=== PATIENT | female | born 1965 | race Caucasian/White ===

== ENCOUNTER 2019-05-16 10:58 | Emergency (ER) | payer SELFPAY ==
[~2019-05-16] VITALS: Ht 165.1 cm; Wt 93.4 kg
--- OUTSIDE RECORDS SUMMARY | 2019-05-16 11:01 | XMS REPORT ---
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 Allergies, Adverse Reactions, Alerts This patient has no known allergies or adverse reactions. Medications This patient has no known medications. Encounters Start Date/Time End Date/Time Encounter Type Admission Type Attending [facility] Care Department Encounter ID [id number] 02:50:23 2019 02:50:23 Emergency [facility] [id number] 2019-01-25 11:41:57 2019-01-25 11:41:57 Outpatient [facility] [id number] 2018-06-02 00:00:00 2018-06-02 00:00:00 Outpatient [facility] [id number] 2017-07-28 00:00:00 2017-07-28 00:00:00 Outpatient [facility] [id number] 2017-07-20 00:00:00 2017-07-20 00:00:00 Outpatient [facility] [id number] 2017-07-06 10:56:00 2017-07-06 10:56:00 Outpatient [facility] [id number] 2017-07-06 00:00:00 2017-07-06 00:00:00 Outpatient [facility] [id number] 2017-06-08 11:52:46 2017-06-08 11:52:46 Outpatient [facility] [id number] 2017-06-01 15:19:26 2017-06-01 15:19:26 Outpatient [facility] [id number] 2017-06-01 12:48:47 2017-06-01 12:48:47 Outpatient [facility] [id number] 2017-05-12 08:37:39 2017-05-12 08:37:39 Outpatient [facility] [id number] 2017-05-06 05:30:00 2017-05-06 05:30:00 Outpatient [facility] [id number] 2017-05-06 00:00:00 2017-05-06 00:00:00 Outpatient [facility] [id number] 2017-04-22 11:43:29 2017-04-22 11:43:29 Outpatient [facility] [id number] 2017-04-22 00:00:00 2017-04-22 00:00:00 Outpatient [facility] [id number] 2017-04-13 08:16:10 2017-04-13 08:16:10 Outpatient [facility] [id number] 2017-04-08 13:38:51 2017-04-08 13:38:51 Outpatient [facility] [id number] 2017-04-06 00:00:00 2017-04-06 00:00:00 Outpatient [facility] [id number] 2017-03-30 13:36:37 2017-03-30 13:36:37 Outpatient [facility] [id number] 2017-03-26 18:18:20 2017-03-26 18:18:20 Emergency [facility] [id number] 2017-03-26 15:04:15 2017-03-26 15:04:15 Emergency [facility] [id number]
[2019-05-16 11:38] LABS: BASOPHILS # (AUTO) 0.1 (0.0-0.1); BASOPHILS % 0.5 % (0.0-1.0); EOSINOPHILS # (AUTO) 0.2 (0.0-0.4); EOSINOPHILS % 1.5 % (0.0-6.0); HEMATOCRIT 42.3 % (34.2-44.1); HEMOGLOBIN 13.7 g/dL (12.0-16.0); LYMPHOCYTES # (AUTO) 2.9 (1.0-3.2); LYMPHOCYTES % 28.2 % (18.0-39.1); MEAN CORPUSCULAR HGB CONC 32.4 g/dL (31-35); MEAN CORPUSCULAR VOLUME 92.6 fL (81-99); MONOCYTES # (AUTO) 0.7 (0.2-0.8); MONOCYTES % 7.2 % (4.4-11.3); NEUTROPHILS # (AUTO) 6.4 (2.1-6.9); NEUTROPHILS % 62.2 % (38.7-80.0); PLATELET COUNT 320 x10e3/uL (140-360); RED BLOOD COUNT 4.57 x10e6/uL (3.6-5.1); RED CELL DISTRIBUTION WIDTH 13.1 % (11.7-14.4)
[2019-05-16 11:39] LABS: BILIRUBIN,URINE NEGATIVE (NEGATIVE); CLARITY,URINE CLEAR (CLEAR); COLOR,URINE YELLOW (YELLOW); KETONES,URINE NEGATIVE (NEGATIVE); LEUKOCYTE ESTERASE ,URINE SMALL (NEGATIVE); NITRITE,URINE NEGATIVE (NEGATIVE); PROTEIN,URINE DIPSTICK NEGATIVE (NEGATIVE); URINE UROBILINOGEN 0.2 mg/dL (0.2 - 1)
[2019-05-16] MEDS ORDERED: SODIUM CHLORIDE 0.9% 1000ML 1,000 ML IV SCH (11:45)
[2019-05-16 11:58] LABS: ALANINE AMINOTRANSFERASE 23 IU/L (0-55); ALBUMIN 3.9 g/dL (3.5-5.0); ALBUMIN/GLOBULIN RATIO 1.4 (0.8-2.0); ALKALINE PHOSPHATASE 113 IU/L (40-150); ANION GAP 13.4 mmol/L (8-16); BLOOD UREA NITROGEN 17 mg/dL (7-26); BUN/CREATININE RATIO 24 (6-25); CALCIUM 9.8 mg/dL (8.4-10.2); CARBON DIOXIDE 24 mmol/L (22-29); CHLORIDE 106 mmol/L (98-107); CREATININE, SERUM 0.72 mg/dL (0.57-1.11); EST GLOMERULAR FILTRATION RATE > 60 ML/MIN (60-); GLUCOSE 89 mg/dL (74-118); POTASSIUM 4.4 mmol/L (3.5-5.1); SODIUM 139 mmol/L (136-145)
[2019-05-16 12:01] LABS: AMORPHOUS SEDIMENT,URINE RARE (FEW); BACTERIA,URINE MANY /HPF; EPITHELIAL CELLS,URINE FEW /LPF
--- NOTE | 2019-05-16 12:21 | Diagnostic Imaging Report ---
EXAMINATION: SHOULDER RIGHT COMPLETE INDICATION: Shoulder pain COMPARISON: None FINDINGS: No acute fracture or dislocation. Alignment is anatomic. The visualized portions of the right lung are clear. Soft tissues appear unremarkable. IMPRESSION: No acute osseous injury. Signed by: Shabana Price MD on 05/16/2019 12:17 PM
[2019-05-16] MEDS ORDERED: CEFTRIAXONE SOD 1 GM/NS 50 ML 50 ML IV ONE (13:00)
[2019-05-16 13:25] VITALS: BP 110/69
[2019-05-16] MEDS ORDERED: ONDANSETRON HCL INJ 2MG/ML 2ML 2 MG/ML VIAL IV ONE (14:00)
== END 2019-05-16 13:53 | disposition home or self-care (01) ==
LOC: ER 10:58
DX: I95.1 Orthostatic hypotension (principal); R53.1 Weakness; M25.511 Pain in right shoulder; W18.30XA Fall on same level, unspecified, initial encounter; Y92.008 Other place in unspecified non-institutional (private) residence as the place of occurrence of the external cause; N39.0 Urinary tract infection, site not specified
CPT/HCPCS: 36415; 73030; 80053; 81001; 85025; 93005; 99284; J0696; J2405; J7030